=== PATIENT | male | born 1995 ===

== ENCOUNTER 2025-02-02 02:28 | Emergency (ER) | payer OTHER, SELFPAY ==
[2025-02-02 02:31] VITALS: BP 132/58; PULSE 61; RESP 18; TEMP 36.7; O2SAT 97; BMI 27.2
--- OUTSIDE RECORDS SUMMARY | 2025-02-02 02:31 | XMS_ITS | Clinical Summary ---
Author Organization [facility] Address [address] [place] [id number] Care Team Providers Care Flask Cleaner Name Role Phone Colleen York MD Primary Care Provider [phone] Allergies Active Allergy Reactions Criticality Noted Date Comments House Dust 10/16/2010 Mold Extracts 10/16/2010 Unlisted Allergen (Include D etail In Comments) *Unknown 05/23/2020 rash Medications FLUoxetine (PROZAC) 20 mg capsuleIndicati ons:Depression with anxiety Take 1 capsule by mouth every morning. 30 capsule 1 08/13/2017 Active Active Problems Problem Noted Date Diagnosed Date Depression with anxiety 01/19/2019 ALLERGIES 06/26/2003 Resolved Problems Problem Noted Date Diagnosed Date Resolved Date Regular astigmatism 12/24/2005 02/14/20 10 Hypermetropia 12/24/2005 03/29/2012 Immunizations Immunization Administration Dates Next Due DTaP 05/26/2002, 0,08/31/1998,05/21,03/02/1998 HIB HbOC (HibTITER) 05/21/1998 HPV 9 (Gardasil 9) 04/08/2016 Hepatitis A (Peds) 10/20/2011,10/16/2010 Hepatitis B (Peds) 08/31/1998,03/02/1998, 998 Hepatitis B, Unspecified 01/12/1998 Human Papilloma Virus Vaccine 11/11/2013 Inactivated Polio Vaccine 05/26/2002,,10/09/1998,05/21 Influenza, IIV3 (Age >=3 years) 03/22/2007 Influenza, IIV4 01/19/2019 MENINGOCOCCAL VACCINE 2 VIAL [id number] (MENVEO) 10/16/2010 MMR 05/26/2002,01/01/1999 Tdap 10/16/2010 Varicella Vaccine 12/23/2010,01/01/1999 Family History Medical History Relation Name Comments Good Health Maternal Grandfather Good Health Maternal Grandmother Genetic Other Diabetes-great grandmother Relation Name Status Comments Maternal Grandfather Maternal Grandmother Other Social History Tobacco Use Types Packs/Day Years Used Date Smoking Tobacco: Never Smokeless Tobacco: Never Tobacco Cessation:Counseling Given: Yes Comments:non smoking home Alcohol Use Standard Drinks/Week Comments No 0 (1 standard drink = 0.6 oz pur e alcohol) PHQ-2 Answer Date Recorded PHQ-2 TOTAL SCORE 0 08/31/2020 Social Connections Answer Date Recorded Frequency of Communication with Friends and Fami ly Not on file 05/04/2021 Financial Resource Strain Answer Date R ecorded Difficulty of Paying Living Expenses Not on file 05/04/2021 Difficulty of Paying Living Expenses Not on file 05/04/2021 Sex and Gender Information Value Date Recorded Sex Assigned at Not on file Legal Sex Male 5:20 AM MIXED [employer]IM[employer] Gender Identity Not on file Sexual Orientation Not on file Occupation Industry Job Start Date Job End Date Student Not on file Not on file Not on file Obstetrics History Last Filed Vital Signs Vital Sign Reading Time Taken Comments Blood Pressure 128/80 08/31/2020 1:12 PM CDT Pulse 75 08/31/2020 1:12 PM CDT Temperature 37.3 C (99.2 F) 05/19/2017 2:20 PM M[employer]ED [employer]IMAL [employer]IAN Respiratory Rate 24 04/22/2005 12:00 AM MIXED ANIMAL [employer]INARIAN Oxygen Saturation 95% 08/31/2020 1:12 PM CDT Inhaled Oxygen Concentration - - Weight 95.7 kg (211 lb) 08/31/2020 1:12 PM CDT Height 182.9 cm (6') 08/31/2020 1:12 PM CDT Body Mass Index 28.62 08/31/2020 1:12 PM CDT Plan of Treatment Health Maintenance Due Date Last Done Comments HIV for age 15-65 2012 Hepatitis C screening for age 18-79 12/31/2015 HPV series for age 9-45 (3 - Male 3-dose series) 07/01/2016 04/08/2016, 11/11/2013 Tetanus booster 10/16/2020 10/16/2010 BMI (ht and wt on same day) for age 18+ 08/31/2021 08/31/2020, 01/19/2019, 09/16/2018, Additional history exists Depression screening for age 12+ 08/31/2021 08/31/2020, 09/16/2018, 09/21/2017, Additional history exists COVID-19 vaccine series ( - 2023- season) 2025 Influenza Vaccine (#1) 2025 01/19/2019, 2006 RSV vaccine for adults or (1 - 1-dose 75+ series) 2072 Hepatitis B series for 19+ Completed 08/31, 03/02/1998, 01/12/1998, Additional history exists Pneumococcal series for age 6-49 Aged Out No longer eligible based on patient's age to complete this topic Insurance [facility] Care Teams Flask Cleaner Relationship Specialty Start Date End Date Colleen York MD PCP - General Family Practice 04/08/16
--- OUTSIDE RECORDS SUMMARY | 2025-02-02 02:32 | XMS_ITS | Clinical Summary ---
Author Organization [facility] Address [address] [place] [id number] Care Team Providers Care Traffic Analyst Name Role Phone No Ref-Primary, Physician Primary Care Provider Allergies Active Allergy Reactions Criticality Noted Date Comments [place] 05/23/2020 rash Medications No known medications Active Problems Problem Noted Date Diagnosed Date Depression with anxiety 01/19/2019 Allergic rhinitis 06/26/2003 Social History Tobacco Use Types Packs/Day Years Used Date Smoking Tobacco: Never Smokeless Tobacco: Never Adolescent Education Answer Date Record ed Getting School Help Needed Not on file 01/24 Sex and Gender Information Value Date Recorded Sex Assigned at Not on file Legal Sex Male 9:34 PM [facility] Gender Identity Not on file Sexual Orientation Not on file Last Filed Vital Signs Vital Sign Reading Time Taken Comments Blood Pressure 150/77 08/31/2023 5:26 PM CDT Pulse 54 08/31/2023 5:26 PM CDT Temperature 36.9 C (98.5 F) 08/31/2023 5:26 PM CDT Respiratory Rate 20 08/31/2023 5:26 PM CDT Oxygen Saturation 100% 08/31/2023 5:26 PM CDT Inhaled Oxygen Concentration - - Weight 95.6 kg (210 lb 12.2 oz) 08/31/2023 5:26 PM CDT Height 180.3 cm (5' 11) 08/31/2023 5:26 PM CDT Body Mass Index 29.4 08/31/2023 5:26 PM CDT Plan of Treatment Health Maintenance Due Date Last Done Comments ADVANCE CARE PLANNING 1997 ANNUAL REVIEW OF HM ORDERS 1997 YEARLY PREVENTIVE VISIT 2000 HIV SCREENING 2012 HEPATITIS C SCREENING 12/31/2015 HPV VACCINE (3 - Male 3-dose series) 07/01/2016 04/08/2016, 11/11/2013 DTAP/TDAP/TD VACCINE (7 - Td or Tdap) 10/16/2020 10/16/2010, 05/26/2002, 03/25/2000, Additional history exists PHQ-2 (once per calendar year) 2024 COVID-19 VACCINE (3 - season) 2025 10/16/2020, 09/18/2020 INFLUENZA VACCINE (#1) 2025 01/19/2019, 2006 ZOSTER VACCINE (1 of 2) 12/31/2047 HEPATITIS B VACCINE Completed 08/31/1998, 03/02/1998, 01/12/1998 MENINGITIS VACCINE Aged Out 10/16/2010 No longer eligible based on patient's age to complete this topic PNEUMOCOCCAL VACCINE: PEDIATRICS (0 to 5 YEARS) AND AT-RISK PATIENTS (6 to 49 YEARS) Aged Out No longer eligible based on patient's age to complete this topic Insurance [employer] Care Teams Traffic Analyst Relationship Specialty Start Date End Date No Ref-Primary, Physician PCP - General 05/23/20
--- NOTE | 2025-02-02 02:48 | CRLHL7_ITS ---
For Patients: As a result of the Century Cures Act, medical imaging exams and procedure reports are released immediately into your electronic medical record. You may view this report before your referring provider. If you have questions, please contact your health care provider. Indication: Trauma. Technique: Three views of the left ankle. Comparison: None. Findings/Impression: Soft tissue swelling of the ankle. No acute fracture, dislocation, or suspicious osseous lesion appreciated. Ankle mortise maintained. Talar dome maintains its normal contour without evidence of osteochondral injury. Dictated by Tha Vasquez MD @ 02/02/2025 3:03:47 AM (Electronically Signed)
--- NOTE | 2025-02-02 02:54 | ED_ITS ---
HPI - General Adult General Chief complaint: Extremity Pain/Injury, Lower Stated complaint: L ankle pain Time Seen by Provider: 02/02/25 02:39 Source: patient Mode of arrival: ambulatory Limitations: no limitations History of Present Illness HPI narrative: 29-year-old male presents to the emergency department in the wee hours 8 hours after an injury while playing flag football. Patient reports that he was playin g football, rolled his ankle. Cap plain for about another 10 minutes and then felt like he kind a rolled the ankle again. Her to slight pop. Was able to initially bear weight but now is hurting more to do so. Try taking some Tylenol 5 hours ago, may have helped a little bit is no longer adequate, has not tried other medications or sleep aids. Could not sleep so he comes to the emergency room. No numbness or tingling. No open wound. No prior surgery in this area. Pain is at the left medial malleolus, does not radiate. No other areas injured or affected. Pain achy and constant. Past medical history benign, denies major long-term health problems no allergies no long-term meds. ROS is notable for the musculoskeletal symptoms as above. Denies other generalized, musculoskeletal, neurological or skin changes. Related Data Allergies Allergy/AdvReac Type Severity Reaction Status Date / Time No Known Drug Allergies Allergy Verified 02/02/25 02:34 Exam Const: Vital Signs, click to edit/add: Vital Signs - 24 hr 02/02/25 02:31 Temperature 98.0 F Pulse Rate [Pulse Oximeter] 61 Respiratory Rate 18 Blood Pressure [Ri ght Upper Arm] 132/58 L Pulse Oximetry 97 Oxygen Delivery Me thod Room Air Documenting provider has reviewed patient's vital signs: yes Common normals: no apparent distress General appearance: cooperative and well kempt HENMT: Common normals: normocephalic Head and scalp: normocephalic Face and sinus: normal facial exam Eye: General eye: normal appearance of both eyes Resp: Common normals: normal respiratory effort Effort & inspection: able to speak in complete sentences Cardio: Other: Regular rate and rhythm palpated through normal bilateral dorsalis pedis pulses. Normal capillary refill in all toes Extremity: Other: Both ankles examined. Right ankle with no point bony tenderness. No swelling or deformity. No abnormalities on the heel, midfoot or toes. Symptomatic side as the left. Toes appear normal. No point tenderness. Normal range of motion. Bowl and heel of the foot also appear normal with no point tenderness. No deformity or bruising. Lateral malleolus, base of the 5th metatarsal without point bony tenderness. Left medial malleolus with mild tenderness along the medial edge, especially anteriorly. No significant effusion. No bruising. Tibia and fibula more proximally appear normal. No tenderness or swelling in knee. Normal pulses and sensation. Psych: Appearance: well kempt Attitude: engaged Memory/cognition: memory grossly intact Insight: insight good Judgement: judgment good Skin: Common normals: no rashes or lesions noted General skin exam: no rashes or lesions noted Course Course ED Course: 29-year-old male with pain in the left ankle after mild injury. Differential diagnosis most likely sprain cannot exclude fracture, tendon injury. No signs of vascular or nerve injury on initial exam. Will give 10 mg of Toradol and perform x-ray. Await findings. Reevaluation(s) Reevaluation #1: Counseled patient on x-ray findings, benign. Suspect sprain. Counseled on pain management. 1000 mg of Tylenol every 6 hours. Prescription for Toradol given. Counseled to avoid other NSAIDs while using Toradol. Okay to use [id number] gentle sleep aids like melatonin, Benadryl, Unisom. Ice for 20 minutes every 3 hours while awake. Crutches for the next 24-48 hours. Work note given for today. Ankle brace encouraged for the next few days, then with sports for 2-3 weeks. If still very bothersome in 7 days recommend outpatient re-evaluation in primary care orthopedic clinic. Alarm symptoms were reviewed that would warrant ED evaluation. Vital Signs Vital signs: Initial Vital Signs Temperature 98.0 F 02/02/25 02:31 Temperature Source Temporal Artery Scan 02/02/25 02:31 Pulse Rate 61 02/02/25 02:31 Pulse Rhythm Regular 02/02/25 02:31 Respiratory Rate 18 02/02/25 02:31 Blood Pressure 132/58 L 02/02/25 02:31 Blood Pressure Mean 82 10 02:31 Blood Pressure Position Sitting 02/02/25 02:31 Pulse Oximetry 97 02/02/25 02:31 Oxygen Delivery Method Room Air 02/02/25 02:31 Vital Signs Temperature 98.0 F 02/02/25 02:31 Pulse Rate 61 02/02/25 02:31 Respiratory Rate 18 02/02/25 02:31 Blood Pressure 132/58 L 02/02/25 02:31 Pulse Oximetry 97 02/02/25 02:31 Oxygen Delivery Method Room Air 02/02/25 02:31 Temperature 98.0 F 02/02/25 02:31 Pulse Rate 61 02/02/25 02:31 Respiratory Rate 18 02/02/25 02:31 Blood Pressure 132/58 L 02/02/25 02:31 Pulse Oximetry 97 02/02/25 02:31 Oxygen Delivery Method Room Air 02/02/25 02:31 Medications Administered Medications: Generic Name Dose Route Start Last Admin Trade Name Freq PRN Reason Stop Dose Admin Ketorolac Tromethamine 10 mg 02/02/25 02:48 02/02/25 02:57 Ketorolac 10 Mg Tablet PO 02/02/25 02:49 10 mg ONCE ONE Administration Medical Decision Making Imaging Data Left ankle x-ray: Attestation: I have reviewed the pertinent imaging results. My impression: No fracture or effusion. Lots of bone spurs for his age but no other major pathology. Radiologist's impression: Findings/Impression: Soft tissue swelling of the ankle. No acute fracture, dislocation, or suspicious osseous lesion appreciated. Ankle mortise maintained. Talar dome maintains its normal contour without evidence of osteochondral injury. Dictated by Tha Vasquez MD @ 02/02/2025 3:03:47 AM (Electronically Signed) Discharge Plan Discharge Clinical Impression: Ankle sprain and strain Patient Disposition: Home, Self-Care Condition: Stable Instructions: Ankle Sprain (DC) Additional Instructions: As we discussed, the x-ray does not show any signs of fracture. Exam clinically does not show any signs of major ligament or tendon injury. I do recommend that you wear an ankle brace, you may have to pick this up at the local pharmacy. You may take it off to sleep and shower but otherwise I would recommend that you wear pretty consistently for the next 5 days and then with all exercise for the next 2-3 weeks. Crutches for the next 24-36 hours, then wean off as tolerated. If symptoms are still very bothersome in 7 days, please make a follow-up appointment in the primary care clinic or the orthopedic clinic for re- evaluation. X-rays are quite good at detecting major injuries but can miss a very small percentage. For pain, take 3 Tylenol as soon as you get home. Continue using those 3 Tylenol every 6 hours for the next few days for pain. It is okay to add in [id number] sleep aids like Benadryl, melatonin or Unisom. I have given her prescription for Toradol which is a different family of pain medication, the NSAIDs. Take 1 pill every 6 hours. Do not use additional Aleve or ibuprofen while your taking the Toradol, as they are in the same family. Elevate and ice for 20 minutes every 3 hours while awake for the next day and half. Off work for 24 hours, then may return with ankle brace in place. You could consider borrowing a knee scooter if things are still very bothersome on Thursday. Off of athletics for 5 days, then return with brace for at least 2 weeks. Activity Level: Activity as Tolerated Discharge Diet: Regular Follow Up/Referrals: Provider,Not a Local [Primary Care Provider, Family Practice] Stand Alone Forms: MyHealth Info Instructions
[2025-02-02] MEDS: KETOROLAC 10 MG TABLET PO (02:57)
== END 2025-02-02 03:34 | disposition home or self-care (01) ==
PROVIDERS: Emergency Provider Family Medicine
DX: S93.402A Sprain of unspecified ligament of left ankle, initial encounter (principal); X50.1XXA Overexertion from prolonged static or awkward postures, initial encounter; Y93.62 Activity, american flag or touch football
CPT/HCPCS: 73610; 99283; A9270